=== PATIENT | female | born 1955 | race Caucasian/White ===

== ENCOUNTER 2021-12-23 20:09 | Emergency (ER) | payer MEDICAID ==
[~2021-12-23] VITALS: Ht 165.1 cm; Wt 121.6 kg
[2021-12-23 21:58] VITALS: BP 141/77
[2021-12-23] MEDS ORDERED: NAPR-54 PO (23:46)
--- NOTE | 2021-12-23 23:51 | NUR ---
PATIENT SEEN AND ASSESSED BY HECTOR LAZO. NO NURSING INTERVENTIONS. HECTOR LAZO Written and verbal after care instructions given and explained BY HECTOR LAZO. Rx of ALBUEROL AND IBUPROFEN given. Patient educated on indication of medication including possible reaction and side effects BY HECTOR LAZO. Opportunity to ask questions provided and answered BY HECTOR LAZO.
== END 2021-12-23 23:51 | disposition home or self-care (01) ==
LOC: MED 20:09
DX: M25.462 Effusion, left knee (principal)
CPT/HCPCS: 73562; 73590; 99284